=== PATIENT | female | born 1940 | race Caucasian/White ===

== ENCOUNTER 2018-03-27 13:20 | Observation (INO) | payer MEDICARE, BC ==
--- NOTE | 2018-03-27 13:28 | EDM.PDOC ---
ED HPI GENERAL MEDICAL PROBLEM - General Chief Complaint: Neurological Problem Stated Complaint: CONFUSION. [facility] Time Seen by Provider: 03/27/18 13:26 Source of Information: Reports: Patient, EMS, Old Records, RN, RN Notes Reviewed History Limitations: Reports: Altered Mental Status - History of Present Illness INITIAL COMMENTS - FREE TEXT/NARRATIVE: Arrives by [facility] from home with report that someone found the pt sitting on her front porch confused, so they called 911. Pt is unable to provide any history. Pt c/o only of dry mouth. She denies pain, headache, fever , or injury. Onset: Unknown/Unsure Duration: Constant Location: Reports: Generalized Severity: Severe Improves with: Reports: None Worsens with: Reports: None - Related Data Allergies Allergy/AdvReac Type Severity Reaction Status Date / Time No Known Allergies Allergy Verified 03/27/18 13:42 Home Meds: Home Meds Acetaminophen [Tylenol Extra Strength] 500 mg PO Q8H PRN 05/23/14 [History] Gabapentin [Neurontin] 600 mg PO BID 05/23/14 [History] Diphenoxylate HCl/Atropine [Lomotil] 1 tab PO QID PRN 01/30/15 [History] Cholecalciferol (Vitamin D3) [Vitamin D3] 5,000 unit PO DAILY 03/27/18 [History] Cyanocobalamin (Vitamin B12) [Vitamin B12] 1,000 mcg PO DAILY 03/27/18 [History] Escitalopram [Lexapro] 10 mg PO DAILY 03/27/18 [History] Metoprolol Tartrate [Lopressor] 50 mg PO DAILY 03/27/18 [History] QUEtiapine [SEROquel] 100 mg PO BEDTIME 03/27/18 [History] Social & Family History - Family History Family Medical History: Unobtainable - Living Situation & Occupation Living situation: Reports: , Alone Occupation: Retired ED ROS GENERAL - Review of Systems Review Of Systems: ROS reveals no pertinent complaints other than HPI. ED EXAM, GENERAL - Physical Exam Exam: See Below Exam Limited By: Altered Mental Status General Appearance: Alert, No Apparent Distress Eye Exam: Bilateral Eye: EOMI, Normal Inspection, PERRL Ears: Normal External Exam, Normal Canal, Hearing Grossly Normal, Normal TMs Nose: Normal Inspection, Normal Mucosa, No Blood Throat/Mouth: Normal Lips, Normal Oropharynx, Normal Voice, No Airway Compromise , Other (dry oral membranes) Head: Atraumatic, Normocephalic Neck: Normal Inspection, Supple, Non-Tender, Full Range of Motion Respiratory/Chest: No Respiratory Distress, Lungs Clear, Normal Breath Sounds, No Accessory Muscle Use, Chest Non-Tender Cardiovascular: Regular Rate, Rhythm, No Edema GI/Abdominal: Normal Bowel Sounds, Soft, Non-Tender, No Distention. No: Guarding, Rigid, Rebound (Female) Exam: Deferred Rectal (Female) Exam: Deferred Back Exam: Normal Inspection, Full Range of Motion Extremities: Normal Inspection, Normal Range of Motion, Non-Tender, No Pedal Edema, Normal Capillary Refill Neurological: Alert, No Motor/Sensory Deficits, Confused, Memory Loss Recent Events Psychiatric: Normal Mood Skin Exam: Warm, Dry, Intact, Normal Color, No Rash EKG INTERPRETATION EKG Date: 03/27/18 Time: 13:52 Rhythm: Other (SR) [place]: Normal P-Wave: Present QRS: Other (LVH) ST-T: Normal QT: Normal Comparison: NA - No Prior EKG Course - Vital Signs Last Recorded V/S: Last Vital Signs Temp 36.5 C 03/27/18 13:28 Pulse 65 03/27/18 13:28 Resp 16 03/27/18 13:28 BP 114/78 03/27/18 13:28 Pulse Ox 96 03/27/18 13:28 - Orders/Labs/Meds Orders: Active Orders 24 hr Category Date Time Status Blood Glucose Check, Bedside [] ONETIME Care 03/27/18 13:35 Active EKG 12 Lead [EKG Documentation Completion] [RC] STAT Care 03/27/18 13:34 Active Peripheral IV Care [RC] . DIRECTED Care 03/27/18 13:35 Active CULTURE BLOOD [BC] Stat Lab 03/27/18 13:46 Received CULTURE BLOOD [BC] Stat Lab 03/27/18 13:51 Results DRUG SCREEN URINE BIORAD [URCHEM] Stat Lab 03/27/18 14:15 Ordered UA W/MICROSCOPIC [URIN] Stat Lab 03/27/18 14:15 Ordered Sodium Chloride 0.9% [Normal Saline] 1,000 ml Med 03/27/18 15:52 Active IV .BOLUS Sodium Chloride 0.9% [Saline Flush] Med 03/27/18 13:34 Active 10 ml FLUSH ASDIRECTED PRN Blood Culture x2 Reflex Set [OM.PC] Stat Oth 03/27/18 13:35 Ordered Peripheral IV Insertion Adult [OM.PC] Stat Oth 03/27/18 13:34 Ordered Medication Orders Sodium Chloride (Normal Saline) 1,000 mls @ 999 mls/hr IV .BOLUS ONE Stop: 03/27/18 16:52 Sodium Chloride (Saline Flush) 10 ml FLUSH ASDIRECTED PRN PRN Reason: Keep Vein Open Last Admin: 03/27/18 14:35 Dose: 10 ml Labs: Laboratory Tests 03/27/18 03/27/18 03/27/18 Range/Units 13:46 13:46 13:46 WBC 7.0 (5.0-10.0) 10^3/uL RBC 3.69 L (4.2-5.4) 10^6/uL Hgb 11.7 L D (12.0-16.0) g/dL Hct 34.2 L (37.0-47.0) % MCV 92.7 (80-100) fL MCH 31.7 (27.0-34.0) pg MCHC 34.2 (33.0-35.0) g/dL Plt Count 168 (150-450) 10^3/uL Neut % (Auto) 62.7 (42.2-75.2) % Lymph % (Auto) 23.6 (20.5-50.1) % [place] % (Auto) 9.7 H (2-8) % Eos % (Auto) 3.4 H (1.0-3.0) % Baso % (Auto) 0.6 (0.0-1.0) % Sodium 132 L (135-145) mmol/L Potassium 3.9 (3.6-5.0) mmol/L Chloride 98 L (101-111) mmol/L Carbon Dioxide 26.0 (21.0-31.0) mmol/L Anion Gap 11.9 BUN 12 (7-18) mg/dL Creatinine 0.8 (0.6-1.3) mg/dL Est Cr Clr Drug Dosing 45.10 mL/min Estimated GFR (MDRD) > 60 BUN/Creatinine Ratio 15.00 Glucose 102 (74-105) mg/dL POC Glucose (83-110) mg/dl Lactic Acid (0.5-2.2) mmol/L Calcium 8.9 (8.4-10.2) mg/dl Total Bilirubin 0.5 (0.2-1.0) mg/dL AST 29 (10-42) IU/L ALT 23 (10-60) IU/L Alkaline Phosphatase 50 (42-121) IU/L Creatine Kinase 178 H (26-174) IU/L Creatine Kinase Index 1.7 (0-2.4) % CK-MB (CK-2) 3.10 (0.4-4.7) ng/mL Troponin I < 0.02 (0.00-0.02) ng/ml Total Protein 6.0 L (6.7-8.2) g/dl Albumin 3.7 (3.2-5.5) g/dl Globulin 2.3 Albumin/Globulin Ratio 1.61 Urine Color (YELLOW) Urine Appearance (CLEAR) Urine pH (5.0-9.0) Ur Specific [place] (1.005-1.030) Urine Protein (NEGATIVE) Urine Glucose (UA) (NEGATIVE) Urine Ketones (NEGATIVE) Urine Occult Blood (NEGATIVE) Urine Nitrite (NEGATIVE) Urine Bilirubin (NEGATIVE) Urine Urobilinogen (0.2-1.0) mg/dL Ur Leukocyte Esterase (NEGATIVE) Urine RBC /HPF Urine WBC (0-5/HPF) /HPF Ur Epithelial Cells /HPF Urine Bacteria (0-FEW/HPF) /HPF Urine Opiates Screen (NEGATIVE) Ur Oxycodone Screen (NEGATIVE) Urine Methadone Screen (NEGATIVE) Ur Barbiturates Screen (NEGATIVE) U Tricyclic Antidepress (NEGATIVE) Ur Phencyclidine Scrn (NEGATIVE) Ur Amphetamine Screen (NEGATIVE) U Methamphetamines Scrn (NEGATIVE) Urine MDMA Screen (NEGATIVE) U Benzodiazepines Scrn (NEGATIVE) Urine Cocaine Screen (NEGATIVE) U Marijuana (THC) Screen (NEGATIVE) Ethyl Alcohol < 5 mg/dL 03/27/18 03/27/18 03/27/18 Range/Units 13:46 14:15 14:15 WBC (5.0-10.0) 10^3/uL RBC (4.2-5.4) 10^6/uL Hgb (12.0-16.0) g/dL Hct (37.0-47.0) % MCV (80-100) fL MCH (27.0-34.0) pg MCHC (33.0-35.0) g/dL Plt Count (150-450) 10^3/uL Neut % (Auto) (42.2-75.2) % Lymph % (Auto) (20.5-50.1) % Wake % (Auto) (2-8) % Eos % (Auto) (1.0-3.0) % Baso % (Auto) (0.0-1.0) % Sodium (135-145) mmol/L Potassium (3.6-5.0) mmol/L Chloride (101-111) mmol/L Carbon Dioxide (21.0-31.0) mmol/L Anion Gap BUN (7-18) mg/dL Creatinine (0.6-1.3) mg/dL Est Cr Clr Drug Dosing mL/min Estimated GFR (MDRD) BUN/Creatinine Ratio Glucose (74-105) mg/dL POC Glucose (83-110) mg/dl Lactic Acid 0.7 (0.5-2.2) mmol/L Calcium (8.4-10.2) mg/dl Total Bilirubin (0.2-1.0) mg/dL AST (10-42) IU/L ALT (10-60) IU/L Alkaline Phosphatase (42-121) IU/L Creatine Kinase (26-174) IU/L Creatine Kinase Index (0-2.4) % CK-MB (CK-2) (0.4-4.7) ng/mL Troponin I (0.00-0.02) ng/ml Total Protein (6.7-8.2) g/dl Albumin (3.2-5.5) g/dl Globulin Albumin/Globulin Ratio Urine Color Yellow (YELLOW) Urine Appearance Clear (CLEAR) Urine pH 6.5 (5.0-9.0) Ur Specific [place] 1.015 (1.005-1.030) Urine Protein Negative (NEGATIVE) Urine Glucose (UA) Negative (NEGATIVE) Urine Ketones Negative (NEGATIVE) Urine Occult Blood Negative (NEGATIVE) Urine Nitrite Negative (NEGATIVE) Urine Bilirubin Negative (NEGATIVE) Urine Urobilinogen 0.2 (0.2-1.0) mg/dL Ur Leukocyte Esterase Negative (NEGATIVE) Urine RBC 0-5 /HPF Urine WBC 0-5 (0-5/HPF) /HPF Ur Epithelial Cells Rare /HPF Urine Bacteria Rare (0-FEW/HPF) /HPF Urine Opiates Screen Negative (NEGATIVE) Ur Oxycodone Screen Negative (NEGATIVE) Urine Methadone Screen Negative (NEGATIVE) Ur Barbiturates Screen Negative (NEGATIVE) U Tricyclic Antidepress Negative (NEGATIVE) Ur Phencyclidine Scrn Negative (NEGATIVE) Ur Amphetamine Screen Negative (NEGATIVE) U Methamphetamines Scrn Negative (NEGATIVE) Urine MDMA Screen Negative (NEGATIVE) U Benzodiazepines Scrn Positive H (NEGATIVE) Urine Cocaine Screen Negative (NEGATIVE) U Marijuana (THC) Screen Negative (NEGATIVE) Ethyl Alcohol mg/dL 03/27/18 Range/Units 14:23 WBC (5.0-10.0) 10^3/uL RBC (4.2-5.4) 10^6/uL Hgb (12.0-16.0) g/dL Hct (37.0-47.0) % MCV (80-100) fL MCH (27.0-34.0) pg MCHC (33.0-35.0) g/dL Plt Count (150-450) 10^3/uL Neut % (Auto) (42.2-75.2) % Lymph % (Auto) (20.5-50.1) % [place] % (Auto) (2-8) % Eos % (Auto) (1.0-3.0) % Baso % (Auto) (0.0-1.0) % Sodium (135-145) mmol/L Potassium (3.6-5.0) mmol/L Chloride (101-111) mmol/L Carbon Dioxide (21.0-31.0) mmol/L Anion Gap BUN (7-18) mg/dL Creatinine (0.6-1.3) mg/dL Est Cr Clr Drug Dosing mL/min Estimated GFR (MDRD) BUN/Creatinine Ratio Glucose (74-105) mg/dL POC Glucose 99 (83-110) mg/dl Lactic Acid (0.5-2.2) mmol/L Calcium (8.4-10.2) mg/dl Total Bilirubin (0.2-1.0) mg/dL AST (10-42) IU/L ALT (10-60) IU/L Alkaline Phosphatase (42-121) IU/L Creatine Kinase (26-174) IU/L Creatine Kinase Index (0-2.4) % CK-MB (CK-2) (0.4-4.7) ng/mL Troponin I (0.00-0.02) ng/ml Total Protein (6.7-8.2) g/dl Albumin (3.2-5.5) g/dl Globulin Albumin/Globulin Ratio Urine Color (YELLOW) Urine Appearance (CLEAR) Urine pH (5.0-9.0) Ur Specific [place] (1.005-1.030) Urine Protein (NEGATIVE) Urine Glucose (UA) (NEGATIVE) Urine Ketones (NEGATIVE) Urine Occult Blood (NEGATIVE) Urine Nitrite (NEGATIVE) Urine Bilirubin (NEGATIVE) Urine Urobilinogen (0.2-1.0) mg/dL Ur Leukocyte Esterase (NEGATIVE) Urine RBC /HPF Urine WBC (0-5/HPF) /HPF Ur Epithelial Cells /HPF Urine Bacteria (0-FEW/HPF) /HPF Urine Opiates Screen (NEGATIVE) Ur Oxycodone Screen (NEGATIVE) Urine Methadone Screen (NEGATIVE) Ur Barbiturates Screen (NEGATIVE) U Tricyclic Antidepress (NEGATIVE) Ur Phencyclidine Scrn (NEGATIVE) Ur Amphetamine Screen (NEGATIVE) U Methamphetamines Scrn (NEGATIVE) Urine MDMA Screen (NEGATIVE) U Benzodiazepines Scrn (NEGATIVE) Urine Cocaine Screen (NEGATIVE) U Marijuana (THC) Screen (NEGATIVE) Ethyl Alcohol mg/dL Meds: Medications Generic Name Dose Route Start Last Admin Trade Name Freq PRN Reason Stop Dose Admin Sodium Chloride 1,000 mls @ 999 mls/hr 03/27/18 15:52 Normal Saline IV 03/27/18 16:52 .BOLUS ONE Sodium Chloride 10 ml 03/27/18 13:34 03/27/18 14:35 Saline Flush FLUSH 10 ml ASDIRECTED PRN Administration Keep Vein Open - Radiology Interpretation Free Text/Narrative:: CT Head: chronic multi-infarct disease, no acute changes per Rad. report. Departure - Departure Time of Disposition: 15:52 (admitted to Dr. Moran) Disposition: Refer to Observation Condition: Undetermined Clinical Impression: Altered mental status Qualifiers: Altered mental status type: unspecified Qualified Code(s): R41.82 - Altered mental status, unspecified Dementia Qualifiers: Dementia type: unspecified type Dementia behavioral disturbance: without behavioral disturbance Qualified Code(s): F03.90 - Unspecified dementia without behavioral disturbance - Discharge Information Forms: ED Department Discharge - My Orders Last 24 Hours: My Active Orders 03/27/18 13:34 EKG 12 Lead [EKG Documentation Completion] [RC] STAT Sodium Chloride 0.9% [Saline Flush] 10 ml FLUSH ASDIRECTED PRN Peripheral IV Insertion Adult [OM.PC] Stat 03/27/18 13:35 Blood Glucose Check, Bedside [RC] ONETIME Peripheral IV Care [RC] . DIRECTED Blood Culture x2 Reflex Set [OM.PC] Stat 03/27/18 13:46 CULTURE BLOOD [BC] Stat 03/27/18 13:51 CULTURE BLOOD [BC] Stat 03/27/18 14:15 DRUG SCREEN URINE BIORAD [URCHEM] Stat UA W/MICROSCOPIC [URIN] Stat 03/27/18 15:52 Sodium Chloride 0.9% [Normal Saline] 1,000 ml IV .BOLUS - Assessment/Plan Last 24 Hours: My Active Orders 03/27/18 13:34 EKG 12 Lead [EKG Documentation Completion] [RC] STAT Sodium Chloride 0.9% [Saline Flush] 10 ml FLUSH ASDIRECTED PRN Peripheral IV Insertion Adult [OM.PC] Stat 03/27/18 13:35 Blood Glucose Check, Bedside [RC] ONETIME Peripheral IV Care [RC] . DIRECTED Blood Culture x2 Reflex Set [OM.PC] Stat 03/27/18 13:46 CULTURE BLOOD [BC] Stat 03/27/18 13:51 CULTURE BLOOD [BC] Stat 03/27/18 14:15 DRUG SCREEN URINE BIORAD [URCHEM] Stat UA W/MICROSCOPIC [URIN] Stat 03/27/18 15:52 Sodium Chloride 0.9% [Normal Saline] 1,000 ml IV .BOLUS
[2018-03-27 14:15] LABS: CHLORIDE,CL 98 mmol/L (101-111); SODIUM,NA 132 mmol/L (135-145)
[2018-03-27] MEDS: Sodium Chloride 0.9% 10 ML Syringe FLUSH PRN ×2 (14:35→21:16)
--- NOTE | 2018-03-27 15:09 | CT ---
Clinical history: 77-year-old confused female (ex-smoker). Interpretation: Emergency unenhanced CT scan of the head and brain obtained while the patient was lyi ng supine on the Siemens multi slice scanner [place], [place]. All sue a archived in the PACS system for storage and study. No previous exams immediately available. Interpretation: Abnormal. Several areas of ischemic infarct involving the periventricular white matter and basal ganglia on bot h cerebral hemispheres (R > L). Generalized symmetric age-appropriate atrophy with underlying mirror-image ventricular prominence. No supratentorial or posterior fossa mass lesion. Cerebellum and brainstem unremarkable for age. Uniformly thick bony calvarium without sign of skull fracture, underlying brain contusion or epidural /subdural hematoma. No signs of acute intracerebral/intraventricular/subarachnoid bleed. Symmetric clear pneumatization of the mastoid and paranasal sinuses. 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 No sign of intracranial mass, hydrocephalus or bleed.
[2018-03-27] MEDS ORDERED: Sodium Chloride 0.9% 1,000 ML IV ONE (15:52)
--- NOTE | 2018-03-27 17:34 | PCM.LDHP ---
L&D History of Present Illness - General Date of Service: 03/27/18 Admit Problem/Dx: Admission Diagnosis/Problem Acute confusional state, weakness to bilateral legs. 03/28/18 08:09 Source of Information: Patient, EMS, EMS Notes Reviewed, Family History Limitations: Reports: No Limitations, Altered Mental Status - History of Present Illness Introduction:: Patient is 77 y/o female with PMH of Dementia who lives by herself. She was brought to the ER because of acute confusion and inability to walk. Patients appaently dialled a friends number and was not making sense on the phone. The friend came over and found her sitting in front of her house confused. Patient alos indicated she could not walk and that she feels weak in her legs. The friend activated EMS and she was brought to the ER. Patient at baseline has some confusiion but appera to be worse from her baseline as per friend by bedside. She is independent and usually walk with no assistive dvise. At this time patient is AAO x 3. She said she is ok but thinks she just over exerted herself and needs to take it easy. She denied fever,chills, chest pain, SOB, nausea, vomiting, abdominal pain. No back pain or trauma to the back. She reports some weakness to both legs but says she it is because she is fatigued. No pain in the legs. She denies bladder or bowel incontinence. No dysruia or increased urinary frequency Timing/Duration: Reports: hour(s):, day(s): Quality: Reports: Stabbing, Other Severity: Moderate Improves with: Reports: None Worsens with: Reports: None Associated Symptoms: Reports: N - Related Data Allergies/Adverse Reactions: Allergies Allergy/AdvReac Type Severity Reaction Status Date / Time No Known Allergies Allergy Verified 03/27/18 13:42 Home Medications: Home Meds Acetaminophen [Tylenol Extra Strength] 500 mg PO Q8H PRN 05/23/14 [History] Gabapentin [Neurontin] 600 mg PO BID 05/23/14 [History] Diphenoxylate HCl/Atropine [Lomotil] 1 tab PO QID PRN 01/30/15 [History] Cholecalciferol (Vitamin D3) [Vitamin D3] 5,000 unit PO DAILY 03/27/18 [History] Cyanocobalamin (Vitamin B12) [Vitamin B12] 1,000 mcg PO DAILY 03/27/18 [History] Escitalopram [Lexapro] 10 mg PO DAILY 03/27/18 [History] Metoprolol Tartrate [Lopressor] 50 mg PO DAILY 03/27/18 [History] QUEtiapine [SEROquel] 100 mg PO BEDTIME 03/27/18 [History] Past Medical History HEENT History: Reports: Impaired Vision Other HEENT History: wear glasses Cardiovascular History: Reports: None Respiratory History: Reports: None Gastrointestinal History: Reports: GERD Genitourinary History: Reports: None ANIMATION DIRECTOR History: Reports: None Musculoskeletal History: Reports: None Neurological History: Reports: None Psychiatric History: Reports: None Endocrine/Metabolic History: Reports: None Hematologic History: Reports: None Immunologic History: Reports: None Oncologic (Cancer) History: Reports: None Dermatologic History: Reports: None - Infectious Disease History Infectious Disease History: Reports: None - Past Surgical History Head Surgeries/Procedures: Reports: None HEENT Surgical History: Reports: Cataract Surgery, Other (See Below) Other HEENT Surgeries/Procedures: eyes lifted Cardiovascular Surgical History: Reports: None Respiratory Surgical History: Reports: None GI Surgical History: Reports: Colonoscopy Female Surgical History: Reports: None Other Musculoskeletal Surgeries/Procedures:: legs get weak now and then Oncologic Surgical History: Reports: None Social & Family History - Family History Family Medical History: Noncontributory - Tobacco Use Smoking Status *Q: Never Smoker Second Hand Smoke Exposure: No - Caffeine Use Caffeine Use: Reports: Coffee - Alcohol Use Days Per Week of Alcohol Use: 2 Number of Drinks Per Day: 0 Total Drinks Per Week: 0 Date of Last Drink: 03/26/18 - Recreational Drug Use Recreational Drug Use: No - Living Situation & Occupation Living situation: Reports: , Alone Occupation: Retired H&P Review of Systems - Review of Systems: Review Of Systems: See Below General: Reports: No Symptoms HEENT: Reports: No Symptoms Pulmonary: Reports: No Symptoms Cardiovascular: Reports: No Symptoms Gastrointestinal: Reports: No Symptoms Genitourinary: Reports: No Symptoms Musculoskeletal: Reports: No Symptoms Skin: Reports: No Symptoms Psychiatric: Reports: No Symptoms Neurological: Reports: No Symptoms, Weakness (power 3/5 in both legs. ) Hematologic/Lymphatic: Reports: No Symptoms Immunologic: Reports: No Symptoms L&D Exam - Exam Exam: See Below - Vital Signs Vital Signs: Last Vital Signs Temp 97.7 F 03/27/18 13:28 Pulse 65 03/27/18 13:28 Resp 16 03/27/18 13:28 BP 114/78 03/27/18 13:28 Pulse Ox 96 03/27/18 13:28 Weight: 135 lb - Exam Quality Assessment: DVT Prophylaxis General: Alert, Oriented HEENT: PERRLA, Conjunctiva Clear, EACs Clear, EOMI, Hearing Intact, Mucosa Moist & [place], Nares Patent, Normal Nasal Septum, Posterior Pharynx Clear, TMs Clear Neck: Supple, Trachea Midline Lungs: Clear to Auscultation, Normal Respiratory Effort Cardiovascular: Regular Rate, Regular Rhythm GI/Abdominal Exam: Normal Bowel Sounds, Soft, Non-Tender, No Organomegaly, No Distention, No Abnormal Bruit, No Mass, Pelvis Stable Rectal Exam: Normal Exam, Normal Rectal Tone Genitourinary: Normal external exam, Normal bimanual exam, Normal speculum exam Back Exam: Normal Inspection, Full Range of Motion Extremities: Normal Inspection, Normal Range of Motion, Non-Tender, No Pedal Edema, Normal Capillary Refill, Other Skin: Warm, Dry, Intact Neurological: Cranial Nerves Intact, Reflexes Equal Bilateral, Strength Equal Bilateral (but reduced power 3/5 in both LE), Abnormal Gait (unable to access) Psychiatric: Alert, Normal Affect, Normal Mood - Patient Data Lab Results Last 24 hrs: Laboratory Results - last 24 hr 03/27/18 03/27/18 03/27/18 Range/Units 13:46 13:46 13:46 WBC 7.0 (5.0-10.0) 10^3/uL RBC 3.69 L (4.2-5.4) 10^6/uL Hgb 11.7 L D (12.0-16.0) g/dL Hct 34.2 L (37.0-47.0) % MCV 92.7 (80-100) fL MCH 31.7 (27.0-34.0) pg MCHC 34.2 (33.0-35.0) g/dL Plt Count 168 (150-450) 10^3/uL Neut % (Auto) 62.7 (42.2-75.2) % Lymph % (Auto) 23.6 (20.5-50.1) % [place] % (Auto) 9.7 H (2-8) % Eos % (Auto) 3.4 H (1.0-3.0) % Baso % (Auto) 0.6 (0.0-1.0) % Sodium 132 L (135-145) mmol/L Potassium 3.9 (3.6-5.0) mmol/L Chloride 98 L (101-111) mmol/L Carbon Dioxide 26.0 (21.0-31.0) mmol/L Anion Gap 11.9 BUN 12 (7-18) mg/dL Creatinine 0.8 (0.6-1.3) mg/dL Est Cr Clr Drug Dosing 45.10 mL/min Estimated GFR (MDRD) > 60 BUN/Creatinine Ratio 15.00 Glucose 102 (74-105) mg/dL POC Glucose (83-110) mg/dl Lactic Acid (0.5-2.2) mmol/L Calcium 8.9 (8.4-10.2) mg/dl Total Bilirubin 0.5 (0.2-1.0) mg/dL AST 29 (10-42) IU/L ALT 23 (10-60) IU/L Alkaline Phosphatase 50 (42-121) IU/L Creatine Kinase 178 H (26-174) IU/L Creatine Kinase Index 1.7 (0-2.4) % CK-MB (CK-2) 3.10 (0.4-4.7) ng/mL Troponin I < 0.02 (0.00-0.02) ng/ml Total Protein 6.0 L (6.7-8.2) g/dl Albumin 3.7 (3.2-5.5) g/dl Globulin 2.3 Albumin/Globulin Ratio 1.61 Urine Color (YELLOW) Urine Appearance (CLEAR) Urine pH (5.0-9.0) Ur Specific [place] (1.005-1.030) Urine Protein (NEGATIVE) Urine Glucose (UA) (NEGATIVE) Urine Ketones (NEGATIVE) Urine Occult Blood (NEGATIVE) Urine Nitrite (NEGATIVE) Urine Bilirubin (NEGATIVE) Urine Urobilinogen (0.2-1.0) mg/dL Ur Leukocyte Esterase (NEGATIVE) Urine RBC /HPF Urine WBC (0-5/HPF) /HPF Ur Epithelial Cells /HPF Urine Bacteria (0-FEW/HPF) /HPF Urine Opiates Screen (NEGATIVE) Ur Oxycodone Screen (NEGATIVE) Urine Methadone Screen (NEGATIVE) Ur Barbiturates Screen (NEGATIVE) U Tricyclic Antidepress (NEGATIVE) Ur Phencyclidine Scrn (NEGATIVE) Ur Amphetamine Screen (NEGATIVE) U Methamphetamines Scrn (NEGATIVE) Urine MDMA Screen (NEGATIVE) U Benzodiazepines Scrn (NEGATIVE) Urine Cocaine Screen (NEGATIVE) U Marijuana (THC) Screen (NEGATIVE) Ethyl Alcohol < 5 mg/dL 03/27/18 03/27/18 03/27/18 Range/Units 13:46 14:15 14:15 WBC (5.0-10.0) 10^3/uL RBC (4.2-5.4) 10^6/uL Hgb (12.0-16.0) g/dL Hct (37.0-47.0) % MCV (80-100) fL MCH (27.0-34.0) pg MCHC (33.0-35.0) g/dL Plt Count (150-450) 10^3/uL Neut % (Auto) (42.2-75.2) % Lymph % (Auto) (20.5-50.1) % [place] % (Auto) (2-8) % Eos % (Auto) (1.0-3.0) % Baso % (Auto) (0.0-1.0) % Sodium (135-145) mmol/L Potassium (3.6-5.0) mmol/L Chloride (101-111) mmol/L Carbon Dioxide (21.0-31.0) mmol/L Anion Gap BUN (7-18) mg/dL Creatinine (0.6-1.3) mg/dL Est Cr Clr Drug Dosing mL/min Estimated GFR (MDRD) BUN/Creatinine Ratio Glucose (74-105) mg/dL POC Glucose (83-110) mg/dl Lactic Acid 0.7 (0.5-2.2) mmol/L Calcium (8.4-10.2) mg/dl Total Bilirubin (0.2-1.0) mg/dL AST (10-42) IU/L ALT (10-60) IU/L Alkaline Phosphatase (42-121) IU/L Creatine Kinase (26-174) IU/L Creatine Kinase Index (0-2.4) % CK-MB (CK-2) (0.4-4.7) ng/mL Troponin I (0.00-0.02) ng/ml Total Protein (6.7-8.2) g/dl Albumin (3.2-5.5) g/dl Globulin Albumin/Globulin Ratio Urine Color Yellow (YELLOW) Urine Appearance Clear (CLEAR) Urine pH 6.5 (5.0-9.0) Ur Specific [place] 1.015 (1.005-1.030) Urine Protein Negative (NEGATIVE) Urine Glucose (UA) Negative (NEGATIVE) Urine Ketones Negative (NEGATIVE) Urine Occult Blood Negative (NEGATIVE) Urine Nitrite Negative (NEGATIVE) Urine Bilirubin Negative (NEGATIVE) Urine Urobilinogen 0.2 (0.2-1.0) mg/dL Ur Leukocyte Esterase Negative (NEGATIVE) Urine RBC 0-5 /HPF Urine WBC 0-5 (0-5/HPF) /HPF Ur Epithelial Cells Rare /HPF Urine Bacteria Rare (0-FEW/HPF) /HPF Urine Opiates Screen Negative (NEGATIVE) Ur Oxycodone Screen Negative (NEGATIVE) Urine Methadone Screen Negative (NEGATIVE) Ur Barbiturates Screen Negative (NEGATIVE) U Tricyclic Antidepress Negative (NEGATIVE) Ur Phencyclidine Scrn Negative (NEGATIVE) Ur Amphetamine Screen Negative (NEGATIVE) U Methamphetamines Scrn Negative (NEGATIVE) Urine MDMA Screen Negative (NEGATIVE) U Benzodiazepines Scrn Positive H (NEGATIVE) Urine Cocaine Screen Negative (NEGATIVE) U Marijuana (THC) Screen Negative (NEGATIVE) Ethyl Alcohol mg/dL 03/27/18 Range/Units 14:23 WBC (5.0-10.0) 10^3/uL RBC (4.2-5.4) 10^6/uL Hgb (12.0-16.0) g/dL Hct (37.0-47.0) % MCV (80-100) fL MCH (27.0-34.0) pg MCHC (33.0-35.0) g/dL Plt Count (150-450) 10^3/uL Neut % (Auto) (42.2-75.2) % Lymph % (Auto) (20.5-50.1) % [place] % (Auto) (2-8) % Eos % (Auto) (1.0-3.0) % Baso % (Auto) (0.0-1.0) % Sodium (135-145) mmol/L Potassium (3.6-5.0) mmol/L Chloride (101-111) mmol/L Carbon Dioxide (21.0-31.0) mmol/L Anion Gap BUN (7-18) mg/dL Creatinine (0.6-1.3) mg/dL Est Cr Clr Drug Dosing mL/min Estimated GFR (MDRD) BUN/Creatinine Ratio Glucose (74-105) mg/dL POC Glucose 99 (83-110) mg/dl Lactic Acid (0.5-2.2) mmol/L Calcium (8.4-10.2) mg/dl Total Bilirubin (0.2-1.0) mg/dL AST (10-42) IU/L ALT (10-60) IU/L Alkaline Phosphatase (42-121) IU/L Creatine Kinase (26-174) IU/L Creatine Kinase Index (0-2.4) % CK-MB (CK-2) (0.4-4.7) ng/mL Troponin I (0.00-0.02) ng/ml Total Protein (6.7-8.2) g/dl Albumin (3.2-5.5) g/dl Globulin Albumin/Globulin Ratio Urine Color (YELLOW) Urine Appearance (CLEAR) Urine pH (5.0-9.0) Ur Specific [place] (1.005-1.030) Urine Protein (NEGATIVE) Urine Glucose (UA) (NEGATIVE) Urine Ketones (NEGATIVE) Urine Occult Blood (NEGATIVE) Urine Nitrite (NEGATIVE) Urine Bilirubin (NEGATIVE) Urine Urobilinogen (0.2-1.0) mg/dL Ur Leukocyte Esterase (NEGATIVE) Urine RBC /HPF Urine WBC (0-5/HPF) /HPF Ur Epithelial Cells /HPF Urine Bacteria (0-FEW/HPF) /HPF Urine Opiates Screen (NEGATIVE) Ur Oxycodone Screen (NEGATIVE) Urine Methadone Screen (NEGATIVE) Ur Barbiturates Screen (NEGATIVE) U Tricyclic Antidepress (NEGATIVE) Ur Phencyclidine Scrn (NEGATIVE) Ur Amphetamine Screen (NEGATIVE) U Methamphetamines Scrn (NEGATIVE) Urine MDMA Screen (NEGATIVE) U Benzodiazepines Scrn (NEGATIVE) Urine Cocaine Screen (NEGATIVE) U Marijuana (THC) Screen (NEGATIVE) Ethyl Alcohol mg/dL Result Diagrams: 03/28/18 06:23 03/28/18 06:23 Tom Results Last 24 hrs: Microbiology 03/27/18 13:51 Anaerobic Blood Culture - Final Blood - Venous - Problem List (1) Bilateral leg weakness SNOMED Code(s): 6116569 ICD Code: R29.898 - [facility] SYMPTOMS AND SIGNS INVOLVING THE MUSCULOSKELETAL SYSTEM Status: Acute Current Visit: Yes Problem List Initiated/Reviewed/Updated: Yes Orders Last 24hrs: Active Orders 24 hr Category Date Time Status CULTURE BLOOD [BC] Stat Lab 03/27/18 13:46 Received CULTURE BLOOD [BC] Stat Lab 03/27/18 13:51 Results DRUG SCREEN URINE BIORAD [URCHEM] Stat Lab 03/27/18 14:15 Ordered UA W/MICROSCOPIC [URIN] Stat Lab 03/27/18 14:15 Ordered Sodium Chloride 0.9% [Saline Flush] Med 03/27/18 13:34 Active 10 ml FLUSH ASDIRECTED PRN Blood Culture x2 Reflex Set [OM.PC] Stat Oth 03/27/18 13:35 Ordered Peripheral IV Insertion Adult [OM.PC] Stat Oth 03/27/18 13:34 Ordered Medication Orders Sodium Chloride (Saline Flush) 10 ml FLUSH ASDIRECTED PRN PRN Reason: Keep Vein Open Last Admin: 03/27/18 14:35 Dose: 10 ml Assessment/Plan Comment:: 1.Acute confusion state This is most likely worsening of dementia Patient has h/o dementia UA and other labs at presentation appears essentially normal will admit at this time to observation status one on one fall precaution 2.Bilateral leg weakness Patient denies pain, numbness, tingling to the legs will get MRIof L/S spine to furtehr evaluate PT/OT 3. Social work consult to access living situation 3. Regular diet 4. DNI/DNR
[2018-03-27] MEDS ORDERED: Atropine/Diphenoxylate 0.025-2.5 MG Tab PO PRN (17:56)
[2018-03-27] MEDS ORDERED: Acetaminophen 500 MG Tab PO PRN (17:56)
[2018-03-27] MEDS: Heparin Sodium 5,000 Units/ML Vial SUBCUT SCH (18:30)
[2018-03-27] MEDS ORDERED: QUEtiapine 100 MG Tab PO SCH (21:00)
[2018-03-27] MEDS: Gabapentin 300 MG Cap PO SCH (21:10)
[2018-03-28] MEDS: Heparin Sodium 5,000 Units/ML Vial SUBCUT SCH (05:44)
[2018-03-28 07:11] LABS: CHLORIDE,CL 104 mmol/L (101-111); SODIUM,NA 138 mmol/L (135-145)
--- NOTE | 2018-03-28 08:34 | PCM.PN ---
- General Info Date of Service: 03/28/18 Admission Dx/Problem (Free Text): Admission Diagnosis/Problem Acute confusional state, weakness to bilateral legs. 03/28/18 08:09 Subjective Update: Patient admitted yesterday for increased confusion. She was see on rounds this morning with no complaints. Confusion has improved. Patient is up, charting with friend by bed side. The weakness in the leg has resolved. She is been up and walking this morning. She ants to go home. She does not want to be discharged to [place]. Functional Status: Reports: Pain Controlled - Review of Systems General: Reports: No Symptoms HEENT: Reports: No Symptoms Pulmonary: Reports: No Symptoms Cardiovascular: Reports: No Symptoms Gastrointestinal: Reports: No Symptoms Genitourinary: Reports: No Symptoms Musculoskeletal: Reports: No Symptoms Skin: Reports: No Symptoms Neurological: Reports: No Symptoms Psychiatric: Reports: No Symptoms - Patient Data Vitals - Most Recent: Last Vital Signs Temp 98.0 F 03/28/18 07:49 Pulse 76 03/28/18 07:49 Resp 20 03/28/18 07:49 BP 140/59 L 03/28/18 07:49 Pulse Ox 98 03/28/18 07:49 Weight - Most Recent: 135 lb I&O - Last 24 Hours: Intake & Output 03/27/18 03/28/18 03/28/18 22:59 06:59 14:59 Intake Total 1006 150 Output Total 500 750 Balance 506 -600 Lab Results Last 24 Hours: Laboratory Results - last 24 hr 03/27/18 03/27/18 03/27/18 Range/Units 13:46 13:46 13:46 WBC 7.0 (5.0-10.0) 10^3/uL RBC 3.69 L (4.2-5.4) 10^6/uL Hgb 11.7 L D (12.0-16.0) g/dL Hct 34.2 L (37.0-47.0) % MCV 92.7 (80-100) fL MCH 31.7 (27.0-34.0) pg MCHC 34.2 (33.0-35.0) g/dL Plt Count 168 (150-450) 10^3/uL Neut % (Auto) 62.7 (42.2-75.2) % Lymph % (Auto) 23.6 (20.5-50.1) % [place] % (Auto) 9.7 H (2-8) % Eos % (Auto) 3.4 H (1.0-3.0) % Baso % (Auto) 0.6 (0.0-1.0) % Sodium 132 L (135-145) mmol/L Potassium 3.9 (3.6-5.0) mmol/L Chloride 98 L (101-111) mmol/L Carbon Dioxide 26.0 (21.0-31.0) mmol/L Anion Gap 11.9 BUN 12 (7-18) mg/dL Creatinine 0.8 (0.6-1.3) mg/dL Est Cr Clr Drug Dosing 45.10 mL/min Estimated GFR (MDRD) > 60 BUN/Creatinine Ratio 15.00 Glucose 102 (74-105) mg/dL POC Glucose (83-110) mg/dl Lactic Acid (0.5-2.2) mmol/L Calcium 8.9 (8.4-10.2) mg/dl Total Bilirubin 0.5 (0.2-1.0) mg/dL AST 29 (10-42) IU/L ALT 23 (10-60) IU/L Alkaline Phosphatase 50 (42-121) IU/L Creatine Kinase 178 H (26-174) IU/L Creatine Kinase Index 1.7 (0-2.4) % CK-MB (CK-2) 3.10 (0.4-4.7) ng/mL Troponin I < 0.02 (0.00-0.02) ng/ml Total Protein 6.0 L (6.7-8.2) g/dl Albumin 3.7 (3.2-5.5) g/dl Globulin 2.3 Albumin/Globulin Ratio 1.61 Urine Color (YELLOW) Urine Appearance (CLEAR) Urine pH (5.0-9.0) Ur Specific [place] (1.005-1.030) Urine Protein (NEGATIVE) Urine Glucose (UA) (NEGATIVE) Urine Ketones (NEGATIVE) Urine Occult Blood (NEGATIVE) Urine Nitrite (NEGATIVE) Urine Bilirubin (NEGATIVE) Urine Urobilinogen (0.2-1.0) mg/dL Ur Leukocyte Esterase (NEGATIVE) Urine RBC /HPF Urine WBC (0-5/HPF) /HPF Ur Epithelial Cells /HPF Urine Bacteria (0-FEW/HPF) /HPF Urine Opiates Screen (NEGATIVE) Ur Oxycodone Screen (NEGATIVE) Urine Methadone Screen (NEGATIVE) Ur Barbiturates Screen (NEGATIVE) U Tricyclic Antidepress (NEGATIVE) Ur Phencyclidine Scrn (NEGATIVE) Ur Amphetamine Screen (NEGATIVE) U Methamphetamines Scrn (NEGATIVE) Urine MDMA Screen (NEGATIVE) U Benzodiazepines Scrn (NEGATIVE) Urine Cocaine Screen (NEGATIVE) U Marijuana (THC) Screen (NEGATIVE) Ethyl Alcohol < 5 mg/dL 03/27/18 03/27/18 03/27/18 Range/Units 13:46 14:15 14:15 WBC (5.0-10.0) 10^3/uL RBC (4.2-5.4) 10^6/uL Hgb (12.0-16.0) g/dL Hct (37.0-47.0) % MCV (80-100) fL MCH (27.0-34.0) pg MCHC (33.0-35.0) g/dL Plt Count (150-450) 10^3/uL Neut % (Auto) (42.2-75.2) % Lymph % (Auto) (20.5-50.1) % [place] % (Auto) (2-8) % Eos % (Auto) (1.0-3.0) % Baso % (Auto) (0.0-1.0) % Sodium (135-145) mmol/L Potassium (3.6-5.0) mmol/L Chloride (101-111) mmol/L Carbon Dioxide (21.0-31.0) mmol/L Anion Gap BUN (7-18) mg/dL Creatinine (0.6-1.3) mg/dL Est Cr Clr Drug Dosing mL/min Estimated GFR (MDRD) BUN/Creatinine Ratio Glucose (74-105) mg/dL POC Glucose (83-110) mg/dl Lactic Acid 0.7 (0.5-2.2) mmol/L Calcium (8.4-10.2) mg/dl Total Bilirubin (0.2-1.0) mg/dL AST (10-42) IU/L ALT (10-60) IU/L Alkaline Phosphatase (42-121) IU/L Creatine Kinase (26-174) IU/L Creatine Kinase Index (0-2.4) % CK-MB (CK-2) (0.4-4.7) ng/mL Troponin I (0.00-0.02) ng/ml Total Protein (6.7-8.2) g/dl Albumin (3.2-5.5) g/dl Globulin Albumin/Globulin Ratio Urine Color Yellow (YELLOW) Urine Appearance Clear (CLEAR) Urine pH 6.5 (5.0-9.0) Ur Specific [place] 1.015 (1.005-1.030) Urine Protein Negative (NEGATIVE) Urine Glucose (UA) Negative (NEGATIVE) Urine Ketones Negative (NEGATIVE) Urine Occult Blood Negative (NEGATIVE) Urine Nitrite Negative (NEGATIVE) Urine Bilirubin Negative (NEGATIVE) Urine Urobilinogen 0.2 (0.2-1.0) mg/dL Ur Leukocyte Esterase Negative (NEGATIVE) Urine RBC 0-5 /HPF Urine WBC 0-5 (0-5/HPF) /HPF Ur Epithelial Cells Rare /HPF Urine Bacteria Rare (0-FEW/HPF) /HPF Urine Opiates Screen Negative (NEGATIVE) Ur Oxycodone Screen Negative (NEGATIVE) Urine Methadone Screen Negative (NEGATIVE) Ur Barbiturates Screen Negative (NEGATIVE) U Tricyclic Antidepress Negative (NEGATIVE) Ur Phencyclidine Scrn Negative (NEGATIVE) Ur Amphetamine Screen Negative (NEGATIVE) U Methamphetamines Scrn Negative (NEGATIVE) Urine MDMA Screen Negative (NEGATIVE) U Benzodiazepines Scrn Positive H (NEGATIVE) Urine Cocaine Screen Negative (NEGATIVE) U Marijuana (THC) Screen Negative (NEGATIVE) Ethyl Alcohol mg/dL 03/27/18 03/28/18 03/28/18 Range/Units 14:23 06:23 06:23 WBC 5.2 (5.0-10.0) 10^3/uL RBC 4.01 L (4.2-5.4) 10^6/uL Hgb 12.5 (12.0-16.0) g/dL Hct 37.0 (37.0-47.0) % MCV 92.3 (80-100) fL MCH 31.2 (27.0-34.0) pg MCHC 33.8 (33.0-35.0) g/dL Plt Count 169 (150-450) 10^3/uL Neut % (Auto) 55.7 (42.2-75.2) % Lymph % (Auto) 27.9 (20.5-50.1) % [place] % (Auto) 11.6 H (2-8) % Eos % (Auto) 4.2 H (1.0-3.0) % Baso % (Auto) 0.6 (0.0-1.0) % Sodium 138 (135-145) mmol/L Potassium 3.8 (3.6-5.0) mmol/L Chloride 104 (101-111) mmol/L Carbon Dioxide 28.0 (21.0-31.0) mmol/L Anion Gap 9.8 BUN 11 (7-18) mg/dL Creatinine 0.9 (0.6-1.3) mg/dL Est Cr Clr Drug Dosing 40.09 mL/min Estimated GFR (MDRD) > 60 BUN/Creatinine Ratio Glucose 102 (74-105) mg/dL POC Glucose 99 (83-110) mg/dl Lactic Acid (0.5-2.2) mmol/L Calcium 8.9 (8.4-10.2) mg/dl Total Bilirubin (0.2-1.0) mg/dL AST (10-42) IU/L ALT (10-60) IU/L Alkaline Phosphatase (42-121) IU/L Creatine Kinase (26-174) IU/L Creatine Kinase Index (0-2.4) % CK-MB (CK-2) (0.4-4.7) ng/mL Troponin I (0.00-0.02) ng/ml Total Protein (6.7-8.2) g/dl Albumin (3.2-5.5) g/dl Globulin Albumin/Globulin Ratio Urine Color (YELLOW) Urine Appearance (CLEAR) Urine pH (5.0-9.0) Ur Specific [place] (1.005-1.030) Urine Protein (NEGATIVE) Urine Glucose (UA) (NEGATIVE) Urine Ketones (NEGATIVE) Urine Occult Blood (NEGATIVE) Urine Nitrite (NEGATIVE) Urine Bilirubin (NEGATIVE) Urine Urobilinogen (0.2-1.0) mg/dL Ur Leukocyte Esterase (NEGATIVE) Urine RBC /HPF Urine WBC (0-5/HPF) /HPF Ur Epithelial Cells /HPF Urine Bacteria (0-FEW/HPF) /HPF Urine Opiates Screen (NEGATIVE) Ur Oxycodone Screen (NEGATIVE) Urine Methadone Screen (NEGATIVE) Ur Barbiturates Screen (NEGATIVE) U Tricyclic Antidepress (NEGATIVE) Ur Phencyclidine Scrn (NEGATIVE) Ur Amphetamine Screen (NEGATIVE) U Methamphetamines Scrn (NEGATIVE) Urine MDMA Screen (NEGATIVE) U Benzodiazepines Scrn (NEGATIVE) Urine Cocaine Screen (NEGATIVE) U Marijuana (THC) Screen (NEGATIVE) Ethyl Alcohol mg/dL Tom Results Last 24 Hours: Microbiology 03/27/18 13:51 Anaerobic Blood Culture - Final Blood - Venous Med Orders - Current: Current Medications Acetaminophen (Tylenol Extra Strength) 500 mg PO Q8H PRN PRN Reason: Pain Cyanocobalamin (Vitamin B12) 1,000 mcg PO DAILY [facility] Diphenoxylate HCl/Atropine (Lomotil 0.025-2.5 Mg) 1 tab PO QID PRN PRN Reason: Diarrhea Escitalopram Oxalate (Lexapro) 10 mg PO DAILY [facility] Gabapentin (Neurontin) 600 mg PO BID [facility] Last Admin: 03/27/18 21:10 Dose: 600 mg Heparin Sodium (Porcine) (Heparin Sodium) 5,000 units SUBCUT Q12H [facility] Last Admin: 03/28/18 05:44 Dose: 5,000 units Metoprolol Tartrate (Lopressor) 50 mg PO DAILY [facility] Non-Formulary Medication (Cholecalciferol (Vitamin D3) [Vitamin D3]) 5,000 unit PO DAILY [facility] Quetiapine Fumarate (Seroquel) 100 mg PO BEDTIME [facility] Last Admin: 03/27/18 21:11 Dose: 100 mg Sodium Chloride (Saline Flush) 10 ml FLUSH ASDIRECTED PRN PRN Reason: Keep Vein Open Last Admin: 03/27/18 21:16 Dose: 10 ml Discontinued Medications Sodium Chloride (Normal Saline) 1,000 mls @ 999 mls/hr IV .BOLUS ONE Stop: 03/27/18 16:52 Last Infusion: 03/27/18 18:37 Dose: 999 mls/hr - Problem List & Annotations (1) Bilateral leg weakness SNOMED Code(s): 3673262 Code(s): R29.898 - [facility] SYMPTOMS AND SIGNS INVOLVING THE MUSCULOSKELETAL SYSTEM Status: Acute Current Visit: Yes - Problem List Review Problem List Initiated/Reviewed/Updated: Yes - My Orders Last 24 Hours: My Active Orders 03/27/18 17:00 Heparin Sodium 5,000 units SUBCUT Q12H 03/27/18 17:34 Patient Status [ADT] Routine Vital Signs [RC] 07,11,15,19,23 DVT/VTE Prophylaxis Reflex [OM.PC] Routine Resuscitation Status Routine 03/27/18 17:37 Antiembolic Devices [RC] .Routine 03/27/18 17:40 OT Evaluation and Treatment [CONS] Routine PT Evaluation and Treatment [CONS] Routine 03/27/18 17:41 Consult to Docking Saw Operator [CONS] Routine 03/27/18 17:43 One To One Therapy [BH] Routine 03/27/18 17:56 Acetaminophen [Tylenol Extra Strength] 500 mg PO Q8H PRN Atropine/Diphenoxylate [Lomotil 0.025-2.5 MG] 1 tab PO QID PRN 03/27/18 21:00 Gabapentin [Neurontin] 600 mg PO BID QUEtiapine [SEROquel] 100 mg PO BEDTIME 03/27/18 Dinner Regular Diet [DIET] 03/28/18 09:00 Cholecalciferol (Vitamin D3) [Vitamin D3] 5,000 unit PO DAILY Cyanocobalamin (Vitamin B12) [Vitamin B12] 1,000 mcg PO DAILY Escitalopram [Lexapro] 10 mg PO DAILY Metoprolol Tartrate [Lopressor] 50 mg PO DAILY - Plan Plan:: 1.Acute confusion state. This has improved ths morning. Patient is well oriented AAO x3 Having meaningful conversation and said she was just a little disoriented yesterday. 2.Bilateral leg weakness Improved. Patient is up and walking 3. Regular diet 4. DNI/DNR
[2018-03-28] MEDS ORDERED: Cyanocobalamin (Vitamin B12) 100 MCG Tab PO SCH (09:00)
[2018-03-28] MEDS ORDERED: Non-Formulary Medication 1 Each (Cholecalciferol (Vitamin D3) [Vitamin D3] 5,000 UNIT) PO SCH (09:00)
[2018-03-28] MEDS ORDERED: Escitalopram 10 MG Tab PO SCH (09:00)
[2018-03-28] MEDS ORDERED: Metoprolol Tartrate 50 MG Tab PO SCH (09:00)
[2018-03-28] MEDS: Gabapentin 300 MG Cap PO SCH (09:04)
[2018-03-28 09:06] VITALS: BP 140/60
--- NOTE | 2018-03-28 09:57 | PCM.DCSUM1 ---
Discharge Summary - Hospital Course HPI Initial Comments: Patient admitted yesterday for increased confusion. She was see on rounds this morning with no complaints. Confusion has improved. Patient is up, charting with friend by bed side. The weakness in the leg has resolved. She is been up and walking this morning. She ants to go home. She does not want to be discharged to [place]. She is stable for discharge. Patient is advised to increase fluid intake and also slow down on her daily activity. She said she has friend and family who check on her. - Discharge Data Discharge Date: 03/28/18 Discharge Disposition: Home, Self-Care 01 Condition: Good - Discharge Diagnosis/Problem(s) (1) Bilateral leg weakness SNOMED Code(s): 1279361 ICD Code: R29.898 - [facility] SYMPTOMS AND SIGNS INVOLVING THE MUSCULOSKELETAL SYSTEM Status: Acute Current Visit: Yes - Patient Summary/Data Consults: Consultations 03/27/18 17:40 OT Evaluation and Treatment [CONS] Routine PT Evaluation and Treatment [CONS] Routine 03/27/18 17:41 Consult to [employer] [CONS] Routine - Patient Instructions Diet: Heart Healthy Diet Activity: As Tolerated Showering/Bathing: May Shower Notify Provider of: Fever, Increased Pain, Swelling and Redness, Drainage, Nausea and/or Vomiting - Discharge Plan Home Medications: Home Meds Acetaminophen [Tylenol Extra Strength] 500 mg PO Q8H PRN 05/23/14 [History] Gabapentin [Neurontin] 600 mg PO BID 05/23/14 [History] Diphenoxylate HCl/Atropine [Lomotil] 1 tab PO QID PRN 01/30/15 [History] Cholecalciferol (Vitamin D3) [Vitamin D3] 5,000 unit PO DAILY 03/27/18 [History] Cyanocobalamin (Vitamin B12) [Vitamin B12] 1,000 mcg PO DAILY 03/27/18 [History] Escitalopram [Lexapro] 10 mg PO DAILY 03/27/18 [History] Metoprolol Tartrate [Lopressor] 50 mg PO DAILY 03/27/18 [History] QUEtiapine [SEROquel] 100 mg PO BEDTIME 03/27/18 [History] Forms: ED Department Discharge - Discharge Summary/Plan Comment DC Time >30 min.: Yes - Patient Data Vitals - Most Recent: Last Vital Signs Temp 98.0 F 03/28/18 07:49 Pulse 76 03/28/18 09:03 Resp 20 03/28/18 07:49 BP 140/60 03/28/18 09:03 Pulse Ox 98 03/28/18 07:49 Weight - Most Recent: 135 lb I&O - Last 24 hours: Intake & Output 03/27/18 03/28/18 03/28/18 22:59 06:59 14:59 Intake Total 1006 150 Output Total 500 750 Balance 506 -600 Lab Results - Last 24 hrs: Laboratory Results - last 24 hr 03/27/18 03/27/18 03/27/18 Range/Units 13:46 13:46 13:46 WBC 7.0 (5.0-10.0) 10^3/uL RBC 3.69 L (4.2-5.4) 10^6/uL Hgb 11.7 L D (12.0-16.0) g/dL Hct 34.2 L (37.0-47.0) % MCV 92.7 (80-100) fL MCH 31.7 (27.0-34.0) pg MCHC 34.2 (33.0-35.0) g/dL Plt Count 168 (150-450) 10^3/uL Neut % (Auto) 62.7 (42.2-75.2) % Lymph % (Auto) 23.6 (20.5-50.1) % [place] % (Auto) 9.7 H (2-8) % Eos % (Auto) 3.4 H (1.0-3.0) % Baso % (Auto) 0.6 (0.0-1.0) % Sodium 132 L (135-145) mmol/L Potassium 3.9 (3.6-5.0) mmol/L Chloride 98 L (101-111) mmol/L Carbon Dioxide 26.0 (21.0-31.0) mmol/L Anion Gap 11.9 BUN 12 (7-18) mg/dL Creatinine 0.8 (0.6-1.3) mg/dL Est Cr Clr Drug Dosing 45.10 mL/min Estimated GFR (MDRD) > 60 BUN/Creatinine Ratio 15.00 Glucose 102 (74-105) mg/dL POC Glucose (83-110) mg/dl Lactic Acid (0.5-2.2) mmol/L Calcium 8.9 (8.4-10.2) mg/dl Total Bilirubin 0.5 (0.2-1.0) mg/dL AST 29 (10-42) IU/L ALT 23 (10-60) IU/L Alkaline Phosphatase 50 (42-121) IU/L Creatine Kinase 178 H (26-174) IU/L Creatine Kinase Index 1.7 (0-2.4) % CK-MB (CK-2) 3.10 (0.4-4.7) ng/mL Troponin I < 0.02 (0.00-0.02) ng/ml Total Protein 6.0 L (6.7-8.2) g/dl Albumin 3.7 (3.2-5.5) g/dl Globulin 2.3 Albumin/Globulin Ratio 1.61 Urine Color (YELLOW) Urine Appearance (CLEAR) Urine pH (5.0-9.0) Ur Specific [place] (1.005-1.030) Urine Protein (NEGATIVE) Urine Glucose (UA) (NEGATIVE) Urine Ketones (NEGATIVE) Urine Occult Blood (NEGATIVE) Urine Nitrite (NEGATIVE) Urine Bilirubin (NEGATIVE) Urine Urobilinogen (0.2-1.0) mg/dL Ur Leukocyte Esterase (NEGATIVE) Urine RBC /HPF Urine WBC (0-5/HPF) /HPF Ur Epithelial Cells /HPF Urine Bacteria (0-FEW/HPF) /HPF Urine Opiates Screen (NEGATIVE) Ur Oxycodone Screen (NEGATIVE) Urine Methadone Screen (NEGATIVE) Ur Barbiturates Screen (NEGATIVE) U Tricyclic Antidepress (NEGATIVE) Ur Phencyclidine Scrn (NEGATIVE) Ur Amphetamine Screen (NEGATIVE) U Methamphetamines Scrn (NEGATIVE) Urine MDMA Screen (NEGATIVE) U Benzodiazepines Scrn (NEGATIVE) Urine Cocaine Screen (NEGATIVE) U Marijuana (THC) Screen (NEGATIVE) Ethyl Alcohol < 5 mg/dL 03/27/18 03/27/18 03/27/18 Range/Units 13:46 14:15 14:15 WBC (5.0-10.0) 10^3/uL RBC (4.2-5.4) 10^6/uL Hgb (12.0-16.0) g/dL Hct (37.0-47.0) % MCV (80-100) fL MCH (27.0-34.0) pg MCHC (33.0-35.0) g/dL Plt Count (150-450) 10^3/uL Neut % (Auto) (42.2-75.2) % Lymph % (Auto) (20.5-50.1) % [place] % (Auto) (2-8) % Eos % (Auto) (1.0-3.0) % Baso % (Auto) (0.0-1.0) % Sodium (135-145) mmol/L Potassium (3.6-5.0) mmol/L Chloride (101-111) mmol/L Carbon Dioxide (21.0-31.0) mmol/L Anion Gap BUN (7-18) mg/dL Creatinine (0.6-1.3) mg/dL Est Cr Clr Drug Dosing mL/min Estimated GFR (MDRD) BUN/Creatinine Ratio Glucose (74-105) mg/dL POC Glucose (83-110) mg/dl Lactic Acid 0.7 (0.5-2.2) mmol/L Calcium (8.4-10.2) mg/dl Total Bilirubin (0.2-1.0) mg/dL AST (10-42) IU/L ALT (10-60) IU/L Alkaline Phosphatase (42-121) IU/L Creatine Kinase (26-174) IU/L Creatine Kinase Index (0-2.4) % CK-MB (CK-2) (0.4-4.7) ng/mL Troponin I (0.00-0.02) ng/ml Total Protein (6.7-8.2) g/dl Albumin (3.2-5.5) g/dl Globulin Albumin/Globulin Ratio Urine Color Yellow (YELLOW) Urine Appearance Clear (CLEAR) Urine pH 6.5 (5.0-9.0) Ur Specific [place] 1.015 (1.005-1.030) Urine Protein Negative (NEGATIVE) Urine Glucose (UA) Negative (NEGATIVE) Urine Ketones Negative (NEGATIVE) Urine Occult Blood Negative (NEGATIVE) Urine Nitrite Negative (NEGATIVE) Urine Bilirubin Negative (NEGATIVE) Urine Urobilinogen 0.2 (0.2-1.0) mg/dL Ur Leukocyte Esterase Negative (NEGATIVE) Urine RBC 0-5 /HPF Urine WBC 0-5 (0-5/HPF) /HPF Ur Epithelial Cells Rare /HPF Urine Bacteria Rare (0-FEW/HPF) /HPF Urine Opiates Screen Negative (NEGATIVE) Ur Oxycodone Screen Negative (NEGATIVE) Urine Methadone Screen Negative (NEGATIVE) Ur Barbiturates Screen Negative (NEGATIVE) U Tricyclic Antidepress Negative (NEGATIVE) Ur Phencyclidine Scrn Negative (NEGATIVE) Ur Amphetamine Screen Negative (NEGATIVE) U Methamphetamines Scrn Negative (NEGATIVE) Urine MDMA Screen Negative (NEGATIVE) U Benzodiazepines Scrn Positive H (NEGATIVE) Urine Cocaine Screen Negative (NEGATIVE) U Marijuana (THC) Screen Negative (NEGATIVE) Ethyl Alcohol mg/dL 03/27/18 03/28/18 03/28/18 Range/Units 14:23 06:23 06:23 WBC 5.2 (5.0-10.0) 10^3/uL RBC 4.01 L (4.2-5.4) 10^6/uL Hgb 12.5 (12.0-16.0) g/dL Hct 37.0 (37.0-47.0) % MCV 92.3 (80-100) fL MCH 31.2 (27.0-34.0) pg MCHC 33.8 (33.0-35.0) g/dL Plt Count 169 (150-450) 10^3/uL Neut % (Auto) 55.7 (42.2-75.2) % Lymph % (Auto) 27.9 (20.5-50.1) % [place] % (Auto) 11.6 H (2-8) % Eos % (Auto) 4.2 H (1.0-3.0) % Baso % (Auto) 0.6 (0.0-1.0) % Sodium 138 (135-145) mmol/L Potassium 3.8 (3.6-5.0) mmol/L Chloride 104 (101-111) mmol/L Carbon Dioxide 28.0 (21.0-31.0) mmol/L Anion Gap 9.8 BUN 11 (7-18) mg/dL Creatinine 0.9 (0.6-1.3) mg/dL Est Cr Clr Drug Dosing 40.09 mL/min Estimated GFR (MDRD) > 60 BUN/Creatinine Ratio Glucose 102 (74-105) mg/dL POC Glucose 99 (83-110) mg/dl Lactic Acid (0.5-2.2) mmol/L Calcium 8.9 (8.4-10.2) mg/dl Total Bilirubin (0.2-1.0) mg/dL AST (10-42) IU/L ALT (10-60) IU/L Alkaline Phosphatase (42-121) IU/L Creatine Kinase (26-174) IU/L Creatine Kinase Index (0-2.4) % CK-MB (CK-2) (0.4-4.7) ng/mL Troponin I (0.00-0.02) ng/ml Total Protein (6.7-8.2) g/dl Albumin (3.2-5.5) g/dl Globulin Albumin/Globulin Ratio Urine Color (YELLOW) Urine Appearance (CLEAR) Urine pH (5.0-9.0) Ur Specific [place] (1.005-1.030) Urine Protein (NEGATIVE) Urine Glucose (UA) (NEGATIVE) Urine Ketones (NEGATIVE) Urine Occult Blood (NEGATIVE) Urine Nitrite (NEGATIVE) Urine Bilirubin (NEGATIVE) Urine Urobilinogen (0.2-1.0) mg/dL Ur Leukocyte Esterase (NEGATIVE) Urine RBC /HPF Urine WBC (0-5/HPF) /HPF Ur Epithelial Cells /HPF Urine Bacteria (0-FEW/HPF) /HPF Urine Opiates Screen (NEGATIVE) Ur Oxycodone Screen (NEGATIVE) Urine Methadone Screen (NEGATIVE) Ur Barbiturates Screen (NEGATIVE) U Tricyclic Antidepress (NEGATIVE) Ur Phencyclidine Scrn (NEGATIVE) Ur Amphetamine Screen (NEGATIVE) U Methamphetamines Scrn (NEGATIVE) Urine MDMA Screen (NEGATIVE) U Benzodiazepines Scrn (NEGATIVE) Urine Cocaine Screen (NEGATIVE) U Marijuana (THC) Screen (NEGATIVE) Ethyl Alcohol mg/dL DAMIEN Results - Last 24 hrs: Microbiology 03/27/18 13:51 Anaerobic Blood Culture - Final Blood - Venous Med Orders - Current: Current Medications Acetaminophen (Tylenol Extra Strength) 500 mg PO Q8H PRN PRN Reason: Pain Cyanocobalamin (Vitamin B12) 1,000 mcg PO DAILY [facility] Last Admin: 03/28/18 09:01 Dose: 1,000 mcg Diphenoxylate HCl/Atropine (Lomotil 0.025-2.5 Mg) 1 tab PO QID PRN PRN Reason: Diarrhea Escitalopram Oxalate (Lexapro) 10 mg PO DAILY [facility] Last Admin: 03/28/18 09:04 Dose: 10 mg Gabapentin (Neurontin) 600 mg PO BID [facility] Last Admin: 03/28/18 09:04 Dose: 600 mg Heparin Sodium (Porcine) (Heparin Sodium) 5,000 units SUBCUT Q12H [facility] Last Admin: 03/28/18 05:44 Dose: 5,000 units Metoprolol Tartrate (Lopressor) 50 mg PO DAILY [facility] Last Admin: 03/28/18 09:03 Dose: 50 mg Non-Formulary Medication (Cholecalciferol (Vitamin D3) [Vitamin D3]) 5,000 unit PO DAILY [facility] Quetiapine Fumarate (Seroquel) 100 mg PO BEDTIME [facility] Last Admin: 03/27/18 21:11 Dose: 100 mg Sodium Chloride (Saline Flush) 10 ml FLUSH ASDIRECTED PRN PRN Reason: Keep Vein Open Last Admin: 03/27/18 21:16 Dose: 10 ml Discontinued Medications Sodium Chloride (Normal Saline) 1,000 mls @ 999 mls/hr IV .BOLUS ONE Stop: 03/27/18 16:52 Last Infusion: 03/27/18 18:37 Dose: 999 mls/hr
--- NOTE | 2018-03-31 17:51 | EKG ---
03/27/2018 - AMMY SPANN - TIME: 1:52 p.m. FINDINGS: Left ventricular hypertrophy with secondary repolarization abnormality. [facility] /[id number]
== END 2018-03-28 11:50 | disposition home or self-care (01) ==
LOC: DL.ED 13:20 → UNDOADMOB 16:38 → DL.MS 16:38
PROVIDERS: ADMIT Student in an Organized Health Care Education/Training Program; ATTEND Student in an Organized Health Care Education/Training Program
DX: R41.0 Disorientation, unspecified (principal); M62.81 Muscle weakness (generalized); Z79.899 Other long term (current) drug therapy
CPT/HCPCS: 36415; 70450; 80048; 80053; 80305; 81001; 82550; 82553; 82962; 83605; 84484; 85025; 87040; 93005; 93010; 96360; 96372; 99285; A9270; G0378; G0480; J1644; J7030; J7050; 99284

== ENCOUNTER 2018-04-13 12:01 | Emergency (ER) | payer MEDICARE, BC ==
[2018-04-13] MEDS ORDERED: Metoprolol Tartrate 25 MG Tab PO ONE (12:36)
--- NOTE | 2018-04-13 12:43 | EDM.PDOC ---
ED HPI GENERAL MEDICAL PROBLEM - General Chief Complaint: Cardiovascular Problem Stated Complaint: BLOOD PRESSURE HIGH Time Seen by Provider: 04/13/18 12:25 Source of Information: Reports: Patient History Limitations: Reports: No Limitations - History of Present Illness INITIAL COMMENTS - FREE TEXT/NARRATIVE: This 77 yo female patient reports to the ED due to having high blood pressure today. The patient reports that she went to the drug store to refill her medications, checked her blood pressure and noticed that her pressure was elevated. The patient reports that she is confused easily, but thinks that she took her medications this morning. The patient brought in a pill pack that was supposed to be completed on 04/04/18 along with a pill pack that is supposed to start tomorrow. The patient's blood pressure was elevated today upon presentation to the ED. Onset: Today Duration: Other Location: Reports: Other (high blood pressure) Quality: Reports: Other Severity: Mild Improves with: Reports: None Worsens with: Reports: None Associated Symptoms: Reports: No Other Symptoms - Related Data Allergies Allergy/AdvReac Type Severity Reaction Status Date / Time No Known Allergies Allergy Verified 03/27/18 13:42 Home Meds: Home Meds Acetaminophen [Tylenol Extra Strength] 500 mg PO Q8H PRN 05/23/14 [History] Gabapentin [Neurontin] 600 mg PO BID 05/23/14 [History] Diphenoxylate HCl/Atropine [Lomotil] 1 tab PO QID PRN 01/30/15 [History] Cholecalciferol (Vitamin D3) [Vitamin D3] 5,000 unit PO DAILY 03/27/18 [History] Cyanocobalamin (Vitamin B12) [Vitamin B12] 1,000 mcg PO DAILY 03/27/18 [History] Escitalopram [Lexapro] 10 mg PO DAILY 03/27/18 [History] Metoprolol Tartrate [Lopressor] 50 mg PO DAILY 03/27/18 [History] QUEtiapine [SEROquel] 100 mg PO BEDTIME 03/27/18 [History] Past Medical History HEENT History: Reports: Impaired Vision Other HEENT History: wear glasses Cardiovascular History: Reports: None Respiratory History: Reports: None Gastrointestinal History: Reports: GERD Genitourinary History: Reports: None [employer]MINISTRATOR History: Reports: None Musculoskeletal History: Reports: None Neurological History: Reports: None Psychiatric History: Reports: None Endocrine/Metabolic History: Reports: None Hematologic History: Reports: None Immunologic History: Reports: None Oncologic (Cancer) History: Reports: None Dermatologic History: Reports: None - Infectious Disease History Infectious Disease History: Reports: None - Past Surgical History Head Surgeries/Procedures: Reports: None HEENT Surgical History: Reports: Cataract Surgery, Other (See Below) Other HEENT Surgeries/Procedures: eyes lifted Cardiovascular Surgical History: Reports: None Respiratory Surgical History: Reports: None GI Surgical History: Reports: Colonoscopy Female Surgical History: Reports: None Other Musculoskeletal Surgeries/Procedures:: legs get weak now and then Oncologic Surgical History: Reports: None Social & Family History - Family History Family Medical History: Noncontributory - Tobacco Use Smoking Status *Q: Never Smoker - Caffeine Use Caffeine Use: Reports: Coffee - Living Situation & Occupation Living situation: Reports: , Alone Occupation: Retired ED ROS GENERAL - Review of Systems Review Of Systems: ROS reveals no pertinent complaints other than HPI. ED EXAM, GENERAL - Physical Exam Exam: See Below Exam Limited By: No Limitations General Appearance: Alert, WD/WN, No Apparent Distress Eye Exam: Bilateral Eye: EOMI, Normal Inspection, PERRL Ears: Normal External Exam, Normal Canal, Hearing Grossly Normal, Normal TMs Nose: Normal Inspection, Normal Mucosa, No Blood Throat/Mouth: Normal Inspection, Normal Lips, Normal Teeth, Normal Gums, Normal Oropharynx, Normal Voice, No Airway Compromise Head: Atraumatic, Normocephalic Neck: Normal Inspection, Supple, Non-Tender, Full Range of Motion Respiratory/Chest: No Respiratory Distress, Lungs Clear, Normal Breath Sounds, No Accessory Muscle Use, Chest Non-Tender Cardiovascular: Normal Peripheral Pulses, Regular Rate, Rhythm, No Edema, No Gallop, No JVD, No Murmur, No Rub GI/Abdominal: Normal Bowel Sounds, Soft, Non-Tender, No Organomegaly, No Distention, No Abnormal Bruit, No Mass (Female) Exam: Deferred Rectal (Female) Exam: Deferred Back Exam: Normal Inspection, Full Range of Motion, NT Extremities: Normal Inspection, Normal Range of Motion, Non-Tender, Normal Capillary Refill, No Pedal Edema Neurological: Alert, Oriented, CN II-XII Intact, Normal Cognition, Normal Gait, Normal Reflexes, No Motor/Sensory Deficits Psychiatric: Normal Affect, Normal Mood Skin Exam: Warm, Dry, Intact, Normal Color, No Rash Lymphatic: No Adenopathy Course - Vital Signs Last Recorded V/S: Last Vital Signs Temp 36.7 C 04/13/18 12:13 Pulse 72 04/13/18 12:13 Resp 16 04/13/18 12:13 BP 204/84 H 04/13/18 12:13 Pulse Ox 98 04/13/18 12:13 - Orders/Labs/Meds Orders: Active Orders 24 hr Category Date Time Status Metoprolol Tartrate [Lopressor] Med 04/13/18 12:36 Once 25 mg PO ONETIME ONE Departure - Departure Time of Disposition: 12:41 Disposition: Home, Self-Care 01 Condition: Fair Clinical Impression: Hypertension Qualifiers: Hypertension type: unspecified Qualified Code(s): I10 - Essential (primary) hypertension Instructions: Hypertension, [id number]-Tbby Care Plan Goals: The patient and family were advised of the examination results during the visit. The patient was given an oral dose of Lopressor (25 mg) while in the ED. The patient was encouraged to make sure that she takes her medications as prescribed. The patient should visit her primary care provider for continued evaluation and further management of her elevated blood pressure. If the patient has any additional symptoms or concerns, the patient should either return to the emergency department or visit her primary care facility. - My Orders Last 24 Hours: My Active Orders 04/13/18 12:36 Metoprolol Tartrate [Lopressor] 25 mg PO ONETIME ONE - Assessment/Plan Last 24 Hours: My Active Orders 04/13/18 12:36 Metoprolol Tartrate [Lopressor] 25 mg PO ONETIME ONE
[2018-04-13 12:49] VITALS: BP 187/68
== END 2018-04-13 12:57 | disposition home or self-care (01) ==
LOC: DL.ED 12:01
DX: I10 Essential (primary) hypertension (principal); Z79.899 Other long term (current) drug therapy
CPT/HCPCS: 99283; A9270

== ENCOUNTER 2018-12-24 13:02 | Inpatient (IN) | payer MEDICARE, BC ==
[2018-12-24] MEDS ORDERED: OLANZapine 10 MG Vial IM PRN (13:43)
[2018-12-24] MEDS ORDERED: Acetaminophen 325 MG Tab PO PRN (14:00)
[2018-12-24] MEDS ORDERED: Ondansetron 4 MG/2 ML SDV IVPUSH PRN (14:00)
[2018-12-24] MEDS ORDERED: Ondansetron 4 MG Tab.DIS PO PRN (14:00)
[2018-12-24 14:16] LABS: CHLORIDE,CL 99 mmol/L (101-111); SODIUM,NA 134 mmol/L (135-145)
[2018-12-24] MEDS: Heparin Sodium 5,000 Units/ML Vial SUBCUT SCH ×2 (14:18→21:35)
[2018-12-24] MEDS: Sodium Chloride 0.9% 1,000 ML IV SCH (14:18)
[2018-12-24] MEDS ORDERED: Sodium Chloride 0.9% 10 ML Syringe FLUSH PRN (15:17)
--- NOTE | 2018-12-24 20:07 | HP ---
CHIEF COMPLAINT: Increased confusion. HISTORY OF PRESENTING ILLNESS: Ms. Yary Connell is an 78-year-old female with medical history significant for hypertension, history of generalized anxiety disorder, lymphocytic colitis, and insomnia, was noticed by the neighbors as she was roaming around in the cold outside her house and was brought to the hospital. At this time, the patient is awake and alert and follows commands spontaneously. She is not sure where she is but she knows this is December of 2018 and she is able to tell me her date of . As per the patient, she went outside to catch some fresh air. She denies any chest pains or shortness of breath at this time. She denies any headaches. No changes in the vision. No tingling, numbness, or weakness to her extremities. She denies any fevers or chills in the last few days. No cough with sputum in the last few days. No complaints of abdominal pain. No complaints of nausea, vomiting, or diarrhea in the last few days. The patient denied any history of chest pains on exertion. No history of dyspnea on exertion. No history of orthopnea or paroxysmal nocturnal dyspnea. The patient denied any history of hematemesis, hematochezia, or melenic stools. Normal bowel and bladder habits otherwise. REVIEW OF SYSTEMS: A complete review of system including skin, ear, nose, and throat, cardiovascular system, respiratory system, gastrointestinal system, genitourinary system, hematology, oncology, neurology, allergy, immunology, constitutional were all evaluated and were negative except for the above-said notes. PAST MEDICAL HISTORY: Significant for anxiety, insomnia, generalized anxiety disorder, lymphocytic colitis. PAST SURGICAL HISTORY: Significant for: 1. Colonoscopy and upper endoscopy. 2. Exploratory laparotomy. 3. Appendicectomy. 4. Neck surgery. ALLERGIES: No known drug allergies. FAMILY HISTORY: Significant for coronary artery disease in her father. HOME MEDICATIONS: Include: 1. Lexapro 10 mg daily. 2. Seroquel 100 mg daily. 3. Atenolol 50 mg daily. 4. Tylenol 500 mg as needed. 5. Budesonide extended release capsule. 6. Lomotil 2.5 mg tablet. 7. Neurontin 300 mg daily. 8. Lorazepam 2 mg as needed. SOCIAL HISTORY: The patient denied any history of smoking tobacco. No history of alcohol intake. PHYSICAL EXAMINATION: General: The patient is awake and alert. Follows commands spontaneously. Cardiovascular System: S1, S2 heard with normal intensity. No gallops. Respiratory System: Clear to auscultation bilaterally. No wheeze. No crepitations. Abdomen: Soft. Bowel sounds positive. Nontender. No rigidity. Extremities: No edema bilateral lower extremities. NEUROLOGY: No gross focal neurological deficits. LABORATORY DATA: No new labs ordered. So we will order for CBC, BMP, LFTs, TSH, B12, folate, CT scan of the head, x-ray of the chest, urinalysis, and urine drug screen. ASSESSMENT: 1. Acute encephalopathy. 2. Possible dementia. 3. Hypertension. 4. History of generalized anxiety disorder. 5. Lymphocytic colitis. PLAN: 1. Acute encephalopathy. The patient presents with acute encephalopathy, exact etiology not clear. We will follow with BMP, LFTs, ammonia, B12 levels. We will get a CT scan of the head. The patient does not have any focal neurological deficit. Unsure if the patient has any underlying dementia. We will closely follow with the labs. 2. Hypertension. The patient noted to be on atenolol, we will continue the same. 3. History of generalized anxiety disorder. The patient is on Seroquel, continue the same. She is also noted to be on Lexapro. 4. DVT prophylaxis. We will have her on heparin for DVT prophylaxis. 5. As the patient is a danger to herself as she was wandering around in the cold outside her house, she is at increased risk, so consult director social service for placement. 6. Reviewed the labs and medications. Reviewed the old charts. [facility] /[id number]
[2018-12-24] MEDS: QUEtiapine 100 MG Tab PO SCH (21:35)
[2018-12-24] MEDS: Gabapentin 300 MG Cap PO SCH (21:35)
[2018-12-25] MEDS: Sodium Chloride 0.9% 1,000 ML IV SCH (04:18)
[2018-12-25] MEDS: Heparin Sodium 5,000 Units/ML Vial SUBCUT SCH ×3 (05:39→22:25)
[2018-12-25] MEDS ORDERED: Non-Formulary Medication 1 Each (Cyanocobalamin (Vitamin B12) [Vitamin B12] 1,000 MCG) PO SCH (09:00)
[2018-12-25] MEDS ORDERED: Non-Formulary Medication 1 Each (Cholecalciferol (Vitamin D3) [Vitamin D3] 5,000 UNIT) PO SCH (09:00)
[2018-12-25] MEDS ORDERED: Metoprolol Tartrate 50 MG Tab PO SCH (09:00)
[2018-12-25] MEDS: Gabapentin 300 MG Cap PO SCH ×2 (09:10→21:09)
[2018-12-25] MEDS: Escitalopram 10 MG Tab PO SCH (09:11)
--- NOTE | 2018-12-25 15:04 | PN ---
DATE: 12/25/2018 HISTORY: Mrs. Yary Connell is an an 78-year-old female with medical history significant for hypertension, history of generalized anxiety disorder, lymphocytic colitis, insomnia admitted to the hospital with increased confusion and acute encephalopathic state. For the last 24 hours, the patient did receive a dose of Zyprexa IM overnight. She denies any chest pains at this time. No shortness of breath. No abdominal pain. No nausea. No vomiting. No diarrhea. She appears to be oriented at this time. REVIEW OF SYSTEMS: Cardiovascular, respiratory, gastrointestinal, neurology, constitutional, were all evaluated. PHYSICAL EXAMINATION: Vitals: Temperature of 96.6, pulse of 63, blood pressure 148/51, respiratory rate of 18, saturating at 98% on room air. General Appearance: The patient is well oriented to time, place, and person. Follows commands spontaneously. Cardiovascular System: S1 and S2 heard with normal intensity. No gallops. Respiratory System: Clear to auscultation bilaterally. No wheeze. No crepitations. Abdomen: Soft. Bowel sounds positive. Nontender. No rigidity. Extremities: No edema, bilateral lower extremities. Neurology: No gross focal neurological deficit. MEDICATIONS: Reviewed. 1. Continue with Tylenol 650 every 4 hours as needed. 2. Lexapro 10 mg daily. 3. Neurontin 600 mg twice a day. 4. Heparin 5000 subcu q.8 hourly. 5. Metoprolol 50 mg twice a day. 6. Zyprexa as needed. 7. Zofran 4 mg as needed for nausea and vomiting. 8. Seroquel 100 mg at bedtime. LABORATORY DATA: No new labs ordered for today. ASSESSMENT: 1. Acute encephalopathy with underlying dementia. 2. Hypertension. 3. Generalized anxiety disorder. 4. History of lymphocytic colitis. PLAN: 1. Acute encephalopathy: The patient was noted to be roaming around on the streets in this cold weather, and she has history of dementia which is at threat to her life, so she is admitted to the hospital. She did receive IV fluids overnight. We will discontinue the IV fluids. She appears to be more awake and alert at this time. Continue with current medications. She got a dose of Zyprexa overnight for acute agitation. We will closely follow. 2. Hypertension, uncontrolled. The patient noted to have elevated blood pressure. We will change the metoprolol to twice a day dosing. We will closely follow the patient. 3. DVT prophylaxis. Continue with heparin for DVT prophylaxis. 4. custodial maintenance worker consulted for discharge planning. [facility] /[id number]
[2018-12-25] MEDS: Metoprolol Tartrate 50 MG Tab PO SCH (21:10)
[2018-12-25] MEDS: QUEtiapine 100 MG Tab PO SCH (21:10)
[2018-12-26] MEDS: Heparin Sodium 5,000 Units/ML Vial SUBCUT SCH ×3 (06:11→21:57)
[2018-12-26 06:56] LABS: ANION GAP 11.7; CHLORIDE,CL 104 mmol/L (101-111); SODIUM,NA 138 mmol/L (135-145)
[2018-12-26] MEDS: Metoprolol Tartrate 50 MG Tab PO SCH ×2 (09:58→20:30)
[2018-12-26] MEDS: Escitalopram 10 MG Tab PO SCH (09:58)
[2018-12-26] MEDS: Gabapentin 300 MG Cap PO SCH ×2 (09:58→20:30)
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
[2018-12-26] MEDS: QUEtiapine 100 MG Tab PO SCH (20:30)
[2018-12-27] MEDS: Heparin Sodium 5,000 Units/ML Vial SUBCUT SCH ×3 (05:42→21:17)
[2018-12-27] MEDS: Metoprolol Tartrate 50 MG Tab PO SCH ×2 (09:57→21:15)
[2018-12-27] MEDS: Gabapentin 300 MG Cap PO SCH ×2 (09:58→21:15)
[2018-12-27] MEDS: Escitalopram 10 MG Tab PO SCH (09:59)
[2018-12-27] MEDS ORDERED: hydrALAZINE 20 MG/ML SDV IVPUSH PRN (12:20)
[2018-12-27] MEDS: amLODIPine 5 MG Tab PO SCH (13:26)
--- NOTE | 2018-12-27 14:51 | PN ---
DATE: 12/27/2018 SUBJECTIVE: Mrs. Ko Mathur is an 78-year-old female with a medical history significant for hypertension, hyperlipidemia, generalized anxiety disorder, lymphocytic colitis in the past admitted with increased confusion and acute encephalopathy state with underlying dementia. For the last 24 hours, the patient is more awake and alert, follows commands spontaneously. Denies any chest pain. No shortness of breath. No abdominal pain. No nausea. No vomiting. No diarrhea. REVIEW OF SYSTEMS: Cardiovascular, respiratory, gastrointestinal, neurology, constitutional were all evaluated. PHYSICAL EXAMINATION: Vital Signs: Temperature of 96.2, pulse of 57, blood pressure 176/68, ranging between 144/54 to 201/58, respiratory rate of 18, and saturating at 97% on room air. General Appearance: The patient is well oriented to time, place, and person. Follows commands spontaneously. Cardiovascular System: S1, S2 heard with normal intensity. No gallops. Respiratory System: Clear to auscultation bilaterally. No wheeze. No crepitations. Abdomen: Soft. Bowel sounds positive. Nontender. No rigidity. Extremities: No edema bilateral lower extremities. Neurology: No gross focal neurological deficit. MEDICATIONS: Reviewed. 1. Continue with Tylenol 650 every 4 hours as needed for pain. 2. Norvasc 5 mg daily. 3. Lexapro 10 mg daily. 4. Neurontin 600 mg twice a day. 5. Lopressor 50 mg twice a day. 6. Zyprexa 2.5 mg IM as needed for agitation every 6 hours. 7. Seroquel 100 mg at bedtime. LABORATORY DATA: Sodium 138, potassium 3.7, chloride 104, BUN 12, and creatinine 0.9. ASSESSMENT: 1. Acute encephalopathy, improved. 2. Dementia. 3. Hypertension. 4. Generalized anxiety disorder. PLAN: 1. Acute encephalopathy, this has much improved. The patient appears to be stable for now. She was noted to have abnormal urinalysis, but repeat UA is within normal limits. No signs of infection identified at this time. Her electrolytes are all within normal limits. The patient does not have any gross focal neurological deficits. CT scan of the head also within normal limits. She is scheduled to be discharged tomorrow to an assisted living facility. We will closely follow the patient. 2. Hypertension, uncontrolled. The patient continues to have elevated blood pressure. She is currently on beta-adolfo, added Norvasc 5 mg for better control of the blood pressure. 3. DVT prophylaxis. Continue with heparin for DVT prophylaxis. 4. Dementia. One might consider adding Namenda with underlying dementia. [facility] /[id number]
[2018-12-27] MEDS: Memantine 10 MG Tab PO SCH (18:35)
[2018-12-27] MEDS: QUEtiapine 100 MG Tab PO SCH (21:16)
[2018-12-28] MEDS: Heparin Sodium 5,000 Units/ML Vial SUBCUT SCH ×3 (06:26→21:48)
[2018-12-28] MEDS: amLODIPine 5 MG Tab PO SCH (08:47)
[2018-12-28] MEDS: Escitalopram 10 MG Tab PO SCH (08:48)
[2018-12-28] MEDS: Memantine 10 MG Tab PO SCH (08:48)
[2018-12-28] MEDS: Metoprolol Tartrate 50 MG Tab PO SCH ×2 (08:48→21:47)
[2018-12-28] MEDS: Gabapentin 300 MG Cap PO SCH ×2 (08:49→21:45)
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
--- NOTE | 2018-12-28 21:16 | PN ---
DATE: 12/28/2018 SUBJECTIVE: Mrs. Yary Connell is an 78-year-old female with medical history significant for dementia, admitted to the hospital with complaints of increased confusion and acute encephalopathic state. The patient was supposed to be discharged today, but as further screening procedures are in place, she triggered a level 2 screening for the correction; so we are still awaiting for clearance for the correction placement; so we have to hold off all the discharge process today. PLAN: She will be staying until we have a clearance from the correction for admission to the correction. She remains hemodynamically stable for now. Continue with the current medications. We will keep the discharge on hold for today. [facility] /[id number]
[2018-12-28] MEDS: QUEtiapine 100 MG Tab PO SCH (21:45)
[2018-12-29] MEDS: Heparin Sodium 5,000 Units/ML Vial SUBCUT SCH (06:20)
[2018-12-29 08:04] VITALS: BP 123/71
[2018-12-29] MEDS: amLODIPine 5 MG Tab PO SCH (08:52)
[2018-12-29] MEDS: Memantine 10 MG Tab PO SCH (08:52)
[2018-12-29] MEDS: Escitalopram 10 MG Tab PO SCH (08:52)
[2018-12-29] MEDS: Metoprolol Tartrate 50 MG Tab PO SCH (08:52)
[2018-12-29] MEDS: Gabapentin 300 MG Cap PO SCH (08:52)
== END 2018-12-29 10:20 | DRG 72 ==
LOC: UNDOADMIN 13:02 → DL.MS 13:02
PROVIDERS: ADMIT Internal Medicine; ATTEND Internal Medicine
DX: G93.40 Encephalopathy, unspecified (principal); F03.90 Unspecified dementia, unspecified severity, without behavioral disturbance, psychotic disturbance, mood disturbance, and anxiety; I10 Essential (primary) hypertension; F41.1 Generalized anxiety disorder; G47.00 Insomnia, unspecified; K52.832 Lymphocytic colitis; E78.5 Hyperlipidemia, unspecified; Z90.49 Acquired absence of other specified parts of digestive tract; Z79.899 Other long term (current) drug therapy
CPT/HCPCS: 36415; 70450; 71045; 80048; 80076; 80305-QW; 81001; 82140; 82550; 82607; 82746; 83735; 84100; 84443; 84484; 85027; 93005; 97161-GP; 97165-GO; A9270-GY; J1644; J7030